=== PATIENT | female | born 1990 | race Caucasian/White ===

== ENCOUNTER 2018-04-02 09:12 | Inpatient (IN) ==
[2018-04-02] MEDS ORDERED: Citric Acid/Sodium Citrate Liq 30 ML UDC PO SCH (09:45)
[2018-04-02 09:51] LABS: Baso # (Auto) 0.1 th/mm3 (0.0-0.2); Baso % (Auto) 0.7 % (0.0-2.0); Eos % (Auto) 0.4 % (0.0-4.0); Hematocrit 30.7 % (35.0-46.0); Hemoglobin 10.5 gm/dL (11.6-15.3); Lymph # (Auto) 1.4 th/mm3 (1.0-4.8); Lymph % (Auto) 18.8 % (9.0-44.0); Mean Corpuscular HGB Conc 34.1 % (32.0-36.0); Mean Corpuscular Hemoglobin 29.2 pg (27.0-34.0); Mean Corpuscular Volume 85.5 fL (80.0-100.0); Mean Platelet Volume 8.7 fL (7.0-11.0); Mono # (Auto) 0.6 th/mm3 (0.0-0.9); Mono % (Auto) 7.8 % (0.0-8.0); Neut # (Auto) 5.2 th/mm3 (1.8-7.7); Neut % (Auto) 72.3 % (16.0-70.0); Platelet Count 212 th/mm3 (150-450); Red Blood Count 3.59 mil/mm3 (4.00-5.30); Red Cell Distribution Width 13.4 % (11.6-17.2); White Blood Count 7.2 th/mm3 (4.0-11.0)
--- NOTE | 2018-04-02 09:54 | P.HPOB ---
History of Present Illness Primary Care Physician: No Primary Care Physician INFORMATICS MANAGER care for women History of Present Illness: at 39 weeks and 4 days gestation, history of 1, presents for scheduled repeat . Patient denies any contractions. Denies any leakage of fluid. No vaginal bleeding. She has been feeling the baby move. No complications during this . GBS negative. Last ultrasound was anatomy scan at 18 weeks. OB history: SAB 1 in 2014 1 in 2016, at 41 weeks for breech presentation Weeks Gestation:: 39 Para: 1 : 3 Total # of Miscarriage(s): 1 - Inpatient Certification I certify that the inpatient services were ordered in accordance with Medicare regulations governing the order. This includes certification that hospital inpatient services are reasonable and necessary and in the case of services not specified as inpatient-only under 42 CFR 419.22(n), that they are appropriately provided as inpatient services in accordance to with the 2-midnight benchmark under 43 CFR 412.3(e) Estimated Total Length of Stay (Days): 3 Plans for Post Hospital Care: Home Review of Systems All other systems reviewed negative except as stated in HPI PMFSH - History History Provided By: Patient - Medical / Surgical Hx Neg / Unobtainable Medical Problems Denied: Yes - Medical History Medical History: Medical History (Last Reviewed 04/02/18 @ 09:51 by Sydney Nicolas MD, R2) delivery delivered - Tobacco History Second Hand Smoke Exposure: No Tobacco Use In Past 30 Days: No Smoking Status: Never smoker - Alcohol History How Often Do You Have a Drink Containing Alcohol: Never - Substance Use History Substance History: No History of Abuse - Travel History History of Recent Travel: No Recent Travel in the [place] Within the Last 8 Weeks: No Recent Travel Out of the Country Within the Last 8 Weeks: No Medications and Allergies Active Medications: Active Medications Citric Acid/Sodium Citrate (Sodium Citrate/Citric Acid Liq) 30 ml PO TACTICAL/MOBILE WATCH OFFICER SUMEET Stop: 04/06/18 09:44 Cefazolin Sodium 2,000 mg/ (Sodium Chloride) 100 mls @ 200 mls/hr IV.SIG TACTICAL/MOBILE WATCH OFFICER SUMEET Stop: 04/06/18 09:59 Lactated Ringer's (Lr 1000 Ml Inj) 1,000 mls @ 2,000 mls/hr IV.SIG .Q30M ONE Stop: 04/02/18 10:00 Lactated Ringer's (Lr 1000 Ml Inj) 1,000 mls @ 150 mls/hr IV.CONT .Q6H40M SUMEET Allergies Allergy/AdvReac Type Severity Reaction Status Date / Time Sulfa (Sulfonamide Allergy Unknown Hives Verified 04/02/18 09:24 Antibiotics) Penicillins AdvReac Unknown other Verified 04/02/18 09:25 Exam Vital signs: Vital Signs 04/02/18 09:30 04/02/18 09:38 Temperature 98.7 F Pulse Rate 88 Respiratory Rate 17 Blood Pressure 129/93 H Intake & Output 04/01/18 04/02/18 04/02/18 18:59 06:59 18:59 Weight 200 kg - Constitutional no acute distress - Routine Respiratory Exam Present: CTA bilaterally. Absent: accessory muscle use, wheezes - Routine Cardiovascular Exam Present: RRR, S1, S2 - Routine Abdominal Exam Present: soft, normoactive bowel sounds - Routine Extremities Exam Absent: clubbing, edema - Routine Skin Exam Absent: cyanosis - Routine Neurological Exam Present: alert, oriented X3 Results - Labs CBC & Chem 7: 04/02/18 09:35 Caprini VTE Risk Assessment Caprini VTE Risk Assessment: No/Low Risk (score <= 1) Caprini Risk Assessment Model: Point Value = 1 Point Value = 2 Point Value = 3 Point Value = 5 Age 41-60 Minor surgery BMI > 25 kg/m2 Swollen legs Varicose veins or History of unexplained or recurrent spontaneous Oral contraceptives or hormone replacement Sepsis (< 1 month) Serious lung disease, including pneumonia (< 1 month) Abnormal pulmonary function Acute myocardial infarction Congestive heart failure (< 1 month) History of inflammatory bowel disease Medical patient at bed rest Age 61-74 Arthroscopic surgery Major open surgery (> 45 min) Laparoscopic surgery (> 45 min) Malignancy Confined to bed (> 72 hours) Immobilizing plaster cast Central venous access Age >= 75 History of VTE Family history of VTE Factor V Leiden Prothrombin [id number] Lupus anticoagulant Anticardiolipin antibodies Elevated serum homocysteine Heparin-induced thrombocytopenia Other congenital or acquired thrombophilia Stroke (< 1 month) Elective arthroplasty Hip, pelvis, or leg fracture Acute spinal cord injury (< 1 month) Prophylaxis Regimen: Total Risk Factor Score Risk Level Prophylaxis Regimen 0-1 Low Early ambulation 2 Moderate Order ONE of the following: *Sequential Compression Device (SCD) *Heparin 5000 units SQ BID 3-4 Higher Order ONE of the following medications: *Heparin 5000 units SQ TID *Enoxaparin/Lovenox 40 mg SQ daily (WT < 150 kg, CrCl > 30 mL/min) *Enoxaparin/Lovenox 30 mg SQ daily (WT < 150 kg, CrCl > 10-29 mL/min) *Enoxaparin/Lovenox 30 mg SQ BID (WT < 150 kg, CrCl > 30 mL/min) AND/OR *Sequential Compression Device (SCD) 5 or more Highest Order ONE of the following medications: *Heparin 5000 units SQ TID (Preferred with Epidurals) *Enoxaparin/Lovenox 40 mg SQ daily (WT < 150 kg, CrCl > 30 mL/min) *Enoxaparin/Lovenox 30 mg SQ daily (WT < 150 kg, CrCl > 10-29 mL/min) *Enoxaparin/Lovenox 30 mg SQ BID (WT < 150 kg, CrCl > 30 mL/min) AND *Sequential Compression Device (SCD) Assessment and Plan - Plan at 39 weeks and 4 days gestation, history of 1, presents for scheduled repeat -Has been n.p.o. since midnight -Follow-up labs -Admit patient to L&D for scheduled section -Ordered preoperative antibiotics
[2018-04-02] MEDS ORDERED: ceFAZolin Inj 2,000 MG in Sodium Chlor 0.9% Inj 80 ML IV.SIG SCH (10:00)
[2018-04-02] MEDS ORDERED: Morphine Sulfate PF Inj 5 MG/10 ML Ampul ONE (10:47)
[2018-04-02 11:05] LABS: Bacteria,Urine Rare /hpf; Bilirubin,Urine Negative (Negative); Clarity,Urine Clear (Clear); Color,Urine Yellow (Yellw/Straw); Glucose,Urine (UA) Negative (Negative); Hyaline Casts,Urine 1 /lpf (0-3); Leukocyte Esterase,Urine Negative (Negative); Nitrite,Urine Negative (Negative); Specific Gravity,Urine 1.034 (1.002-1.035); Squamous Epithelial Cell,Urine 1 /hpf (0-5)
[2018-04-02 11:15] LABS: Amphetamine Screen,Urine Neg (Neg); Barbiturate Screen,Urine Neg (Neg); Cannabinoid Screen,Urine Neg (Neg); Cocaine Screen,Urine Neg (Neg)
[2018-04-02 11:58] LABS: Opiate Screen,Urine Neg (Neg)
[2018-04-02] MEDS ORDERED: Metoprolol Inj 5 MG/5 ML Vial IV.PUSH ONE (12:00)
[2018-04-02] MEDS ORDERED: Esmolol Bolus Inj 100 MG/10 ML Vial IV.PUSH ONE (12:00)
[2018-04-02] MEDS ORDERED: Glycopyrrolate Inj 1 MG/5 ML Syringe IV.PUSH ONE (12:00)
[2018-04-02] MEDS ORDERED: Phenylephrine/NS 1000 MCG/10ML Syringe IV.PUSH ONE (12:00)
[2018-04-02] MEDS ORDERED: Senna/Docusate Sodium 8.6/50 MG Tablet PO PRN (12:39)
[2018-04-02] MEDS ORDERED: Ibuprofen 600 MG Tablet PO PRN (12:39)
[2018-04-02] MEDS ORDERED: Simethicone 80 MG Chew Tablet PO PRN (12:39)
[2018-04-02] MEDS ORDERED: Oxytocin 30 Units/500ml Premix 30 UNITS/500 ML BAG IV.SIG ONE (12:39)
--- NOTE | 2018-04-02 13:16 | P.OP ---
- Preoperative Diagnosis (1) Previous section complicating , antepartum condition or complication - Postoperative Diagnosis (1) Previous section complicating , with delivery Date of procedure: 04/02/18 Procedure: Repeat low transverse section Anesthesia: spinal Surgeon: Esteban Martinez MD Optics Test Technician: Sydney Nicolas Estimated blood loss (mL): 500 IV fluids (mL): 1,000 Urine output (mL): 100 Operation and Findings: Patient is taken operating room placed supine position operating table after adequate spinal anesthesia she is prepped draped for abdominal surgery. A Pfannenstiel incision was reused in the lower abdomen the old incision scar excised out of cast. Incision carried the fascia sharply fascia dissected off the rectus muscle and the peritoneal cavity entered sharply in the midline. The incision extended superiorly inferiorly. The bladder blade placed lower is the incision and the visceral peritoneum was sharply taken off the lower uterine segment placed on the bladder blade. A transverse hysterotomy was made extended bluntly bilaterally and a female infant was delivered 11:27 AM weight 3150 g Apgars 8 8 with no complications cord blood obtained delayed cord clamping done and the placenta then manually extracted without difficulty. The uterus cleaned of all remnants of membranes exteriorized and then the hysterotomy closed running layer of 0 chromic followed by getting suture same and hemostasis achieved with several small stick ties on the corners. The uterus was placed on traction and the bladder was reapproximated with 2-0 Vicryl running suture in the lower uterine segment. Then the uterus elevated and the blood suctioned the cul-de-sac and gutters. The parietal peritoneum closed anteriorly with a running 2-0 Vicryl suture. The rectus muscle reapproximated with stick ties of chromic and Vicryl. The fascia then closed in running layer 0 Vicryl. Subcutaneous tissues were approximated with running 3-0 plain catgut suture. The skin closed with 3-0 Monocryl subcuticular stitch. A 7 day silver dressing was placed on the incision to stay on for a week estimated blood loss 500 cc sponge and needle correct 2 and the patient to recovery in stable condition.
[2018-04-02] MEDS ORDERED: Oxytocin 30 Units/500ml Premix 30 UNITS/500 ML BAG ONE (13:44)
[2018-04-02] MEDS ORDERED: Naloxone Inj 0.4 MG/ML Vial IV.PUSH PRN (13:57)
[2018-04-02] MEDS ORDERED: Oxytocin 30 Units/500ml Premix 30 UNITS/500 ML BAG IV.SIG PRN (17:39)
[2018-04-02] MEDS: ceFAZolin Inj 2,000 MG in Sodium Chlor 0.9% Inj 80 ML IV.SIG SCH (20:42)
[2018-04-03] MEDS: Ibuprofen 600 MG Tablet PO PRN ×4 (01:31→22:51)
[2018-04-03] MEDS: ceFAZolin Inj 2,000 MG in Sodium Chlor 0.9% Inj 80 ML IV.SIG SCH (05:27)
[2018-04-03 05:57] LABS: Baso % (Auto) 0.1 % (0.0-2.0); Eos % (Auto) 0.2 % (0.0-4.0); Hematocrit 27.7 % (35.0-46.0); Hemoglobin 9.1 gm/dL (11.6-15.3); Lymph # (Auto) 2.3 th/mm3 (1.0-4.8); Lymph % (Auto) 16.2 % (9.0-44.0); Mean Corpuscular Volume 87.7 fL (80.0-100.0); Mean Platelet Volume 8.8 fL (7.0-11.0); Mono % (Auto) 7.1 % (0.0-8.0); Neut # (Auto) 10.9 th/mm3 (1.8-7.7); Neut % (Auto) 76.4 % (16.0-70.0); Platelet Count 190 th/mm3 (150-450); Red Blood Count 3.15 mil/mm3 (4.00-5.30); Red Cell Distribution Width 13.6 % (11.6-17.2); White Blood Count 14.2 th/mm3 (4.0-11.0)
--- NOTE | 2018-04-03 08:38 | P.PNOB ---
Subjective Interval history: Patient is a 27-year-old delivered at 39 weeks and 4 days. Patient is day 1 after repeat . Patient's pain is well-controlled. Patient reports eating and drinking without any nausea or vomiting. Patient reports minimal bleeding. Patient has has not passed gas or bowel movements this point. Patient is walking without lower extremity pain or shortness of breath. Patient reports desire for contraception arrange as outpatient. Objective Vital Signs/I&O: Vital Signs 04/02/18 09:30 04/02/18 09:38 04/02/18 10:00 Temperature 98.7 F Pulse Rate 88 91 H Respiratory Rate 17 Blood Pressure 129/93 H 128/75 04/02/18 10:15 04/02/18 12:45 04/02/18 13:00 Temperature 97.5 F L Pulse Rate 90 82 Respiratory Rate 17 19 20 Blood Pressure 115/57 L 107/51 L 04/02/18 13:15 04/02/18 13:30 04/02/18 13:40 Temperature 97.7 F Pulse Rate 69 75 74 Respiratory Rate 18 20 20 Blood Pressure 100/52 L 123/57 L 04/02/18 13:45 04/02/18 15:00 04/02/18 20:00 Temperature 97.9 F 98.3 F Pulse Rate 76 69 Respiratory Rate 18 18 Blood Pressure 103/55 L 119/61 111/54 L 04/02/18 21:30 04/02/18 22:20 04/03/18 00:00 Temperature 98.3 F Pulse Rate 85 Respiratory Rate 18 18 18 Blood Pressure 109/54 L 04/03/18 01:30 04/03/18 04:00 04/03/18 05:27 Temperature 98.1 F Pulse Rate 60 Respiratory Rate 16 18 18 Blood Pressure 129/64 04/03/18 07:00 Temperature Pulse Rate Respiratory Rate 18 Blood Pressure Intake & Output 04/02/18 04/03/18 04/03/18 18:59 06:59 18:59 Intake Total 100 / 100 Balance 100 / 100 Weight 200 kg Intake: IV 100 / 100 Ancef Inj 2,000 MG In NS Inj 80 100 / 100 ML @ 200 mls/hr IV.SIG Q8H SUMEET Rx#:[id number] Result Diagrams: 04/03/18 05:23 Objective Remarks: GENERAL: Well-nourished, well-developed patient. CARDIOVASCULAR: Regular rate and rhythm without murmurs, gallops, or rubs. RESPIRATORY: Breath sounds equal bilaterally. No accessory muscle use. ABDOMEN/GI: Abdomen soft, non-tender, bowel sounds present. Incision: Dressing as clean, dry and intact. Fundus: Firm, non-tender at umbilicus. GENITOURINARY: Light to moderate bleeding. EXTREMITIES: No cyanosis or edema, non-tender, without signs of DVT. Medications and IVs: Active Medications Citric Acid/Sodium Citrate (Sodium Citrate/Citric Acid Liq) 30 ml PO CYBER FORENSIC SPECIALIST [facility] Stop: 04/06/18 09:44 Diphenhydramine HCl (Benadryl) 50 mg PO Q6H PRN PRN Reason: MILD TO MODERATE ITCHING Stop: 04/03/18 13:56 Diphenhydramine HCl (Benadryl Inj) 25 mg IV.PUSH Q6H PRN PRN Reason: MILD TO MODERATE ITCHING Stop: 04/03/18 13:56 Diphtheria/Pertussis/Tetanus Vacc (Boostrix Vaccine Inj) 0.5 ml IM .ONCE ONE Stop: 04/03/18 16:01 Cefazolin Sodium 2,000 mg/ (Sodium Chloride) 100 mls @ 200 mls/hr IV.SIG CYBER FORENSIC SPECIALIST [facility] Stop: 04/06/18 09:59 Lactated Ringer's (Lr 1000 Ml Inj) 1,000 mls @ 150 mls/hr IV.CONT .Q6H40M [facility] Last Admin: 04/02/18 10:45 Dose: 150 mls/hr Oxytocin (Pitocin 30 Units/Ns 500 Ml Premix) 30 units in 500 mls @ 100 mls/hr IV.SIG PRN PRN PRN Reason: Heavy bleeding Stop: 04/03/18 17:38 Lactated Ringer's (Lr 1000 Ml Inj) 1,000 mls @ 100 mls/hr IV.CONT .Q10H [facility] Stop: 04/03/18 13:38 Last Admin: 04/02/18 21:01 Dose: 100 mls/hr Ibuprofen (Motrin) 600 mg PO Q6HR PRN PRN Reason: cramping Last Admin: 04/03/18 01:31 Dose: 600 mg Ketorolac Tromethamine (Toradol Inj) 30 mg IM Q6H PRN PRN Reason: SEE LABEL COMMENTS Stop: 04/06/18 12:38 Last Admin: 04/02/18 15:15 Dose: 30 mg Measles/Mumps/Rubella Vaccine Live (M-M-R Ii Vaccine Inj) 0.5 ml SQ .ONCE ONE Stop: 04/03/18 16:01 Miscellaneous Information ([facility]) 1 each OTHER UNSCH PRN PRN Reason: SEE LABEL COMMENTS Stop: 04/03/18 13:56 Miscellaneous Information ([facility]) 1 each OTHER UNSCH PRN PRN Reason: SEE LABEL COMMENTS Stop: 04/03/18 13:56 Naloxone HCl (Narcan Inj) 0.4 mg IV.PUSH UNSCH PRN PRN Reason: SEE LABEL COMMENTS Stop: 04/03/18 13:56 Ondansetron HCl (Zofran Inj) 4 mg IV.PUSH Q6H PRN PRN Reason: NAUSEA OR VOMITING Oxycodone/Acetaminophen (Percocet 5/325 Mg) 1 tab PO Q4H PRN PRN Reason: PAIN SCALE 3 TO 5 Last Admin: 04/03/18 01:32 Dose: 1 tab Oxycodone/Acetaminophen (Percocet 5/325 Mg) 2 tab PO Q4H PRN PRN Reason: PAIN SCALE 6 TO 10 Last Admin: 04/03/18 05:26 Dose: 2 tab Senna/Docusate Sodium (Queta-Colace) 2 tab PO Q12H PRN PRN Reason: CONSTIPATION Simethicone (Mylicon Chew) 80 mg PO QID PRN PRN Reason: FLATULENCE Sodium Chloride (Ns Flush) 2 ml IV.FLUSH BID SUMEET Sodium Chloride (Ns Flush) 2 ml IV.FLUSH PRN PRN PRN Reason: FLUSH AFTER USING IV ACCESS Assessment and Plan - Diagnosis (1) Status post repeat low transverse section Code(s): Z98.891 - History of uterine scar from previous surgery Status: Acute - Plan Patient is a 27-year-old delivered at 39 weeks and 4 days. Patient is day 1 after repeat . Patient was counseled to do 6 weeks of pelvic rest. Patient was counseled to follow up in 1 week for incision check and 6 weeks for routine follow-up. --Hemoglobin of 9.1 postoperatively, 10.5 on admission. WBC of 14.2 postoperatively with no signs of infection and vital signs are normal --Acosta catheter removed this morning, has not voided yet on her own --Continue routine postoperative care --Motrin and Percocet when necessary for pain --Encourage OOB --Pelvic rest for 6 weeks will need follow-up appointment at that time. --Contraception: Will arrange as outpatient --Anticipate discharge in 1-2 days
[2018-04-03] MEDS ORDERED: Diphtheria/Tetanus/Pertussis Vaccine Inj 0.5 ML Syringe IM ONE (16:00)
[2018-04-03] MEDS ORDERED: Measles/Mumps/Rubella Vaccine Inj 0.5 ML Vial SQ ONE (16:00)
[2018-04-03 20:03] VITALS: RESP 18
[2018-04-04] MEDS: Ibuprofen 600 MG Tablet PO PRN (06:21)
[2018-04-04 07:46] VITALS: BP 102/58; PULSE 75; TEMP 98
--- NOTE | 2018-04-04 08:12 | P.PNOB ---
Subjective Post op day: 2 Interval history: Patient seen and examined bedside this morning. Patient ambulating and voiding without difficulty. Using drinking with no nausea or vomiting. Patient has been passing gas. Denies any chest pain/shortness of breath/dizziness. No calf tenderness. Objective Vital Signs/I&O: Vital Signs 04/03/18 08:30 04/03/18 11:34 04/03/18 14:00 Temperature 97.9 F 98.1 F Pulse Rate 81 90 Respiratory Rate 20 18 20 Blood Pressure 112/62 106/62 04/03/18 19:15 04/04/18 07:45 Temperature 98.4 F 98.0 F Pulse Rate 85 75 Respiratory Rate 18 18 Blood Pressure 105/55 L 102/58 L Result Diagrams: 04/03/18 05:23 Objective Remarks: GENERAL: Well-nourished, well-developed patient. CARDIOVASCULAR: Regular rate and rhythm without murmurs, gallops, or rubs. RESPIRATORY: Breath sounds equal bilaterally. No accessory muscle use. ABDOMEN/GI: Abdomen soft, non-tender, bowel sounds present. Incision: Clean, dry and intact. No drainage from incision. Long-term bandage in place. Fundus: Firm, non-tender at umbilicus. GENITOURINARY: Light to moderate bleeding. EXTREMITIES: No cyanosis or edema, non-tender, without signs of DVT. Medications and IVs: Active Medications Citric Acid/Sodium Citrate (Sodium Citrate/Citric Acid Liq) 30 ml PO APPLICATION DEVELOPER MANAGER [facility] Stop: 04/06/18 09:44 Cefazolin Sodium 2,000 mg/ (Sodium Chloride) 100 mls @ 200 mls/hr IV.SIG APPLICATION DEVELOPER MANAGER [facility] Stop: 04/06/18 09:59 Lactated Ringer's (Lr 1000 Ml Inj) 1,000 mls @ 150 mls/hr IV.CONT .Q6H40M [facility] Last Admin: 04/02/18 10:45 Dose: 150 mls/hr Ibuprofen (Motrin) 600 mg PO Q6HR PRN PRN Reason: cramping Last Admin: 04/04/18 06:21 Dose: 600 mg Ketorolac Tromethamine (Toradol Inj) 30 mg IM Q6H PRN PRN Reason: SEE LABEL COMMENTS Stop: 04/06/18 12:38 Last Admin: 04/02/18 15:15 Dose: 30 mg Ondansetron HCl (Zofran Inj) 4 mg IV.PUSH Q6H PRN PRN Reason: NAUSEA OR VOMITING Oxycodone/Acetaminophen (Percocet 5/325 Mg) 1 tab PO Q4H PRN PRN Reason: PAIN SCALE 3 TO 5 Last Admin: 04/03/18 17:41 Dose: 1 tab Oxycodone/Acetaminophen (Percocet 5/325 Mg) 2 tab PO Q4H PRN PRN Reason: PAIN SCALE 6 TO 10 Last Admin: 04/04/18 06:21 Dose: 2 tab Senna/Docusate Sodium (Queta-Colace) 2 tab PO Q12H PRN PRN Reason: CONSTIPATION Last Admin: 04/03/18 11:41 Dose: 2 tab Simethicone (Mylicon Chew) 80 mg PO QID PRN PRN Reason: FLATULENCE Last Admin: 04/04/18 07:42 Dose: 80 mg Sodium Chloride (Ns Flush) 2 ml IV.FLUSH BID SUMEET Sodium Chloride (Ns Flush) 2 ml IV.FLUSH PRN PRN PRN Reason: FLUSH AFTER USING IV ACCESS Assessment and Plan - Diagnosis (1) Status post repeat low transverse section Code(s): Z98.891 - History of uterine scar from previous surgery Status: Acute Plan: POD #2 from repeat . No postop complications, patient doing well Hemoglobin 9; will DC with iron/vitamin C/Colace Patient understands the bandage remains in place 7 days Follow-up incision check in 1 week w/ OBGYN Follow up CBC as outpatient with private PATENT AGENT She will continue to consider contraceptive options, will consult PATENT AGENT at 1 week visit Prescribe percocet x 3 days for pain - Plan Discharge Planning: Discharge today
== END 2018-04-04 15:12 | disposition home or self-care (01) ==
LOC: H2E 09:12 → H1EA 15:08
PROVIDERS: ADMIT Obstetrics & Gynecology Maternal & Fetal Medicine; ATTEND Obstetrics & Gynecology Maternal & Fetal Medicine